=== PATIENT | male | born 2000 | race Two or more races ===

== ENCOUNTER 2020-05-31 13:08 | Emergency (ER) | payer OTHER ==
[~2020-05-31] VITALS: Ht 188 cm; Wt 85.4 kg
[2020-05-31] MEDS ORDERED: AUGM875T28 PO (14:31)
[2020-05-31] MEDS ORDERED: TESS100C PO (14:31)
[2020-05-31 14:43] VITALS: BP 131/69
== END 2020-05-31 14:45 | disposition home or self-care (01) ==
LOC: M ED 13:08
DX: J01.90 Acute sinusitis, unspecified (principal)
CPT/HCPCS: 87880; 99284; U0003